=== PATIENT | female | born 1980 | race Two or more races ===

== ENCOUNTER 2025-06-12 18:03 | Emergency (ER) | payer MEDICAID, SELFPAY ==
[2025-06-12 18:03] VITALS: BMI 32.3
[2025-06-12 18:24] VITALS: BP 146/75; PULSE 66; RESP 18; TEMP 36.8; O2SAT 98
--- NOTE | 2025-06-12 18:44 | XR_ITS ---
Examination: CT abdomen and pelvis without contrast. Coronal 3-D reconstructions. Sagittal 2-D reconstructions. Date and time of exam: June 12, 2025, 2040 hours INDICATIONS: Onset left-sided flank pain today CTDI: vol (mGy): 8.87 DLP: (mGycm): 475 Technique: Axial images of the abdomen have been obtained, 3 mm slice thickness Intravenous contrast material has not been administered. Low dose protocols were performed. One or more of the following dose reduction techniques were used; automated exposure control, adjustment of the mA and/or KV according to patient size, use of iterative reconstruction technique. Findings: No focal liver or splenic lesions No gallstones No pancreatic or adrenal mass 5 mm 6 mm 3 mm right renal calculi 2 mm left renal calculus Mild left hydronephrosis secondary to 5 mm distal left ureteral vesicle junction calculus Aorta normal size No pelvic mass Normal appendix IMPRESSION: Mild left hydronephrosis secondary to 5 mm distal left ureterovesical junction calculus
--- NOTE | 2025-06-12 18:46 | PD.EDABDPN ---
ED Abdominal Pain RME/HPI General Chief Complaint: Abdominal Pain Stated complaint: ABD PAIN AND VOMITING TODAY Time seen by provider: 06/12/25 18:17 Arrival date/time: 06/12/25 18:03 Source: patient, RN notes reviewed and old records reviewed Mode of arrival: ambulatory Limitations: no limitations RME / HPI RME / HPI narrative: 44yof presents to ED for sudden onset of left flank pain radiating to LLQ today. Patient reports nausea and vomiting. No fever, diarrhea or urinary symptoms reported. No medications or treatments bread icer. Denies history of kidney stones. Related Data Previous Rx's ?Medication ?Instructions ?Recorded acetaminophen 300 mg-codeine 30 mg 1 tab PO Q6H PRN pain #12 tabs 06/12/25 tablet ibuprofen 600 mg tablet 600 mg PO Q6H PRN pain #30 tabs 06/12/25 ondansetron 4 mg disintegrating 4 mg PO Q6H PRN nausea and 06/12/25 tablet vomiting #10 tabs tamsulosin 0.4 mg capsule (Flomax) 0.4 mg PO QDAY #7 caps 06/12/25 Allergies Allergy/AdvReac Type Severity Reaction Status Date / Time No Known Allergies Allergy Verified 06/12/25 18:06 Review of Systems Review of Systems Systems Reviewed: All systems reviewed, normal except as documented Constitutional Constitutional: Denies chills and Denies fever(s) Gastrointestinal Gastrointestinal: Reports abdominal pain, Reports nausea and Reports vomiting Genitourinary Genitourinary: Denies dysuria, Reports flank pain and Denies hematuria Past Medical History Past Medical History GASTROINTESTINAL: Positive Obesity Surgical History OTHER SURGICAL HX: Denies past surgical history Social History SMOKING STATUS: Never smoker SUBSTANCE USE: does not use ALCOHOL: Never ED Exam General Limitations: Present no limitations General appearance: Present alert, in no apparent distress and other (Actively vomiting in triage) Head Head exam: Present atraumatic and normocephalic Eye Eye exam: Present normal appearance, PERRL and EOMI ENT ENT exam: Present normal exam and mucous membranes moist Neck Neck exam: Present normal inspection and full ROM Chest Chest inspection: Present normal inspection and symmetric chest wall rise Respiratory Respiratory exam: Present normal lung sounds bilaterally; Absent respiratory distress Cardiovascular Cardiovascular exam: Present regular rate and normal rhythm Abdominal Exam Abdominal exam: Present soft; Absent distention, tenderness, guarding or rebound Extremities Exam Extremities exam: Present normal inspection and full ROM Back Exam Back exam: Present CVA tenderness (L); Absent CVA tenderness (R) Neurological Exam Neurological exam: Present alert and oriented X3 Psychiatric Psychiatric exam: Present normal affect and normal mood Skin Skin exam: Present warm, dry, intact and normal color Course Quality Measures none Orders Category Date Time Status CT abdomen pelvis wo con Stat Exams 06/12/25 18:44 Completed CBC Stat Lab 06/12/25 19:22 Completed CMP [Comprehensive Metabolic Panel] Stat Lab 06/12/25 19:22 Completed HCG,Qualitative Serum Stat Lab 06/12/25 19:22 Completed Lipase Stat Lab 06/12/25 19:22 Completed UA [Urinalysis] Stat Lab 06/12/25 19:20 Completed Ketorolac Inj [Toradol Inj] Med 06/12/25 18:44 Discontinued 30 mg IM X1 ONE Ondansetron Odt [Zofran Odt] Med 06/12/25 18:44 Discontinued 4 mg PO X1 ONE Vital Signs Vital signs: Vital Signs Temperature 98.3 F 06/12/25 18:24 Pulse Rate 66 06/12/25 18:24 Respiratory Rate 18 06/12/25 18:24 Blood Pressure 146/75 H 06/12/25 18:24 Pulse Oximetry (%) 98 06/12/25 18:24 Oxygen Delivery Method Room Air 06/12/25 18:24 Abdominal Pain MDM MDM Narrative MDM Narrative:: 44yof presents to ED for sudden onset of left flank pain radiating to LLQ today. Patient reports nausea and vomiting. No fever, diarrhea or urinary symptoms reported. No medications or treatments bread icer. Denies history of kidney stones. Patient reassessed. She is feeling significantly better, symptoms are improved. Discussed labs and imaging. Encouraged adequate fluids, symptomatic treatment prn. Stable for discharge, RTED precautions given. Patient data External records reviewed:: None (no prior visits) Clinical information provided by:: patient Social determinants that could affect healthcare access:: other (specify) (Acculturation difficulty, poor access to healthcare) Patient has the following chronic illnesses:: Obesity How is presenting disease/condition affected by chronic disease/condition?: uneffected by Evaluation data The following diagnostics were reviewed and interpreted by me:: lab results and radiology exam(s) Lab and/or radiology exams considered but not ordered:: none Interpretation Summary: No leukocytosis No anemia No CLAIR UA +blood Negative preg CT abd/pelvis: IMPRESSION: Mild left hydronephrosis secondary to 5 mm distal left ureterovesical junction calculus Dictated By: Kaushal Manzanares MD Medications / Prescriptions Medications or Prescriptions considered but not ordered:: No antibiotics recommended at this time Medication administrations:: Medication Administration History Discontinued Medications Ketorolac Tromethamine (Ketorolac Inj 30 Mg/Ml Vial) 30 mg IM X1 ONE Stop: 06/12/25 18:45 Last Admin: 06/12/25 19:25 Dose: 30 mg Documented By: Ondansetron HCl (Ondansetron Odt 4 Mg Tabrap) 4 mg PO X1 ONE; Protocol Stop: 06/12/25 18:45 Last Admin: 06/12/25 19:26 Dose: 4 mg Documented By: Above medications administered in ED Consultations Consultation(s) initiated? (list below): No Diagnosis Differential diagnosis abdominal pain: other (Gastroenteritis, kidney stone, renal colic, UTI, , pyelonephritis) Most likely diagnosis given after review of the tests above:: renal colic, left ureteral stone Admission Indicated Admission indicated?: not indicated Admission Request Was there a request for admission?: No Disposition Plan Disposition Plan: Discharge Discharge Attestation Discharge Attestation: The patient and all family members were given an opportunity to ask questions and understood the discharge instructions. Discharge instructions specifically effects, indications for sooner follow up or return to the emergency department, and the expected course of current diagnosis. Patient condition: Stable Discharge Plan Plan Patient Disposition: HOME (Self Care) Patient condition on transfer: Stable Prescriptions/Referrals Prescriptions/Med Rec: New tamsulosin [Flomax] 0.4 mg capsule 0.4 mg PO QDAY Qty: 7 0RF acetaminophen-codeine 300-30 mg tablet 1 tab PO Q6H PRN (Reason: pain) Qty: 12 0RF ibuprofen 600 mg tablet 600 mg PO Q6H PRN (Reason: pain) Qty: 30 0RF ondansetron 4 mg tablet,disintegrating 4 mg PO Q6H PRN (Reason: nausea and vomiting) Qty: 10 0RF Referrals: Ashwin Herrera MD [Primary Care Provider, Family Practice] - In 1 week Problem List Clinical Impression: Left ureteral stone Patient/Caregiver Discharge Instructions Education Materials: ED Kidney Stone w/ Colic Print Language: Japanese Stand Alone Forms: Megan Award Info., Work/School Release, Patient Portal Info Letter PA/MACHINE HOSE CUTTER Supervising Physician PA/MACHINE HOSE CUTTER Supervising Physician: Cal
[2025-06-12 19:24] LABS: Collection Type, Urine Clean Catch
[2025-06-12] MEDS: KETOROLAC INJ 30 MG/ML VIAL IM (19:25)
[2025-06-12] MEDS: ONDANSETRON ODT 4 MG TABRAP PO (19:26)
[2025-06-12 19:27] LABS: Bilirubin,Urine Negative (Negative); Blood,Urine 3+ (Negative); Clarity,Urine Turbid (Clear/Hazy); Color,Urine Lt-Yellow (Lt Yel-Yel); Glucose, Urine Negative (Negative); Ketones,Urine Negative (Negative); Leukocyte Esterase,Urine Negative (Negative); Nitrite,Urine Negative (Negative); PH,Urine 5.5 (5.0-7.0); Protein,Urine 1+ (Neg - Trace); RBC,Urine 239 /hpf (0-3); Specific Gravity,Urine 1.024 (1.001-1.035); Squamous Epithelial Cell,Urine 8 /hpf (0-5); Urobilinogen,Urine Negative mg/dL (0.0-1.0); WBC,Urine 7 /hpf (0-5)
[2025-06-12 19:38] LABS: Basophils # (Auto) 0.1 Thou/mm3 (0.0-0.2); Basophils % (Auto) 1 % (0-2.5); Eosinophils # (Auto) 0.1 Thou/mm3 (0.0-0.5); Eosinophils % (Auto) 1 % (0-10); Hematocrit 41.9 % (36.0-46.0); Hemoglobin 15.0 g/dL (12.0-16.0); Immature Granulocytes Auto 0.03 Thou/mm3 (0.00-0.00); Lymphocytes # (Auto) 1.6 Thou/mm3 (1.0-4.8); Lymphocytes % (Auto) 16 % (10-50); Mean Corpuscular HGB Conc 35.8 g/dl (31.0-37.0); Mean Corpuscular Hemoglobin 31.6 pg (25.0-35.0); Mean Corpuscular Volume 88 fL (80-100); Monocytes # (Auto) 0.5 Thou/mm3 (0.0-0.8); Monocytes % (Auto) 5 % (0-12); Neutrophils # (Auto) 8.0 Thou/mm3 (1.8-7.7); Neutrophils % (Auto) 78 % (37-80); Nucleated Red Blood Cell # 0.00 Thou/mm3 (0.00-0.00); Nucleated Red Blood Cell % 0 /100 WBC (0); Platelet Count 216 Thou/mm3 (140-440); RDW Standard Deviation 40.0 fL (36.4-46.3); Red Blood Count 4.75 Miln/mm3 (4.00-5.20); White Blood Count 10.2 Thou/mm3 (3.6-11.0)
[2025-06-12 19:56] LABS: Alanine Aminotransferase 24 U/L (10-49); Albumin, Serum 4.9 gm/dL (3.5-5.0); Albumin/Globulin Ratio 1.8 (1.2-2.2); Alkaline Phosphatase 77 U/L (46-116); Anion Gap 10 (7-16); Aspartate Amino Transferase 26 U/L (0-34); BUN/Creatinine Ratio 12 Ratio (12-20); Bilirubin,Total 0.5 mg/dL (0.3-1.2); Blood Urea Nitrogen 13 mg/dL (9-23); Calcium 9.6 mg/dL (8.3-10.6); Calcium (Corrected) 9.6 mg/dL (8.5-10.1); Carbon Dioxide 26.7 mMol/L (20.0-31.0); Chloride 105 mMol/L (98-107); Creatinine (Component) 1.1 mg/dL (0.6-1.3); Estimated Creatinine Clearance 75.6 mL/min (>60); Globulin 2.7 gm/dL (2.3-3.5); Glucose 130 mg/dL (74-106); Lipase 39 U/L (12-53); Osmolality,Calculated 285 (275-295); Potassium 4.1 mMol/L (3.4-5.1); Sodium 142 mMol/L (136-145); Total Protein 7.6 gm/dL (5.7-8.2); eGFR > 60 See Note
[2025-06-12 20:14] LABS: HCG,Qualitative Serum Negative
== END 2025-06-13 00:19 | disposition home or self-care (01) ==
PROVIDERS: Physician Assistant; Emergency Provider Emergency Medicine; PCP Family Medicine
DX: N13.2 Hydronephrosis with renal and ureteral calculous obstruction (principal)
CPT/HCPCS: 36415; 74176; 80053; 81001; 83690; 84703; 85025; 96372; 99283; J1885; Q0162